=== PATIENT | female | born 1950 | race African-American/Black ===

== ENCOUNTER 2018-12-21 09:13 | Outpatient (CLI) | payer MEDICARE ==
--- NOTE | 2018-12-21 10:30 | BD ---
DEXA BONE DENSITY EXAM: COMPARISON: None. HISTORY: A 68-year-old postmenopausal female for screening. FINDINGS: Lumbar Spine: BMD (g/cm2) L1 1.270 T-Score: 2.5 L2 1.392 T-Score: 3.3 L3 1.350 T-Score: 2.4 L4 1.318 T-Score: 2.3 L1-L4 1.333 T-Score: 2.6 Femoral Neck: 0.894 T-Score: 0.4 Total Femur: 1.032 T-Score: 0.7 Impression: Normal bone mineral density. POS: TPC
== END 2018-12-21 09:14 | disposition home or self-care (01) ==
LOC: BICMAMMO 09:13
PROVIDERS: ATTEND Family Medicine
DX: Z78.0 Asymptomatic menopausal state (principal)
CPT/HCPCS: 77080

== ENCOUNTER 2019-01-18 12:38 | Outpatient (CLI) | payer MEDICARE ==
--- NOTE | 2019-01-18 13:44 | MMO ---
Bilateral MAMMO Bilat Diag DDI+JANE. CLINICAL HISTORY: Patient is 68 years old and is seen for diagnostic exam,lump or thickening in the left breast and pain in both breasts. The patient has the following family history of breast cancer: 2 maternal aunts; niece and daughter. The patient has no personal history of cancer. VIEWS: The views performed were: bilateral craniocaudal with tomosynthesis; bilateral mediolateral oblique with tomosynthesis; and bilateral mediolateral. FILMS COMPARED: The present examination has been compared to prior imaging studies performed at [facility] on 07/19/2010 and 05/18/2015, and at [facility] on 01/18/2019. MAMMOGRAM FINDINGS: There are scattered fibroglandular densities. There are no suspicious masses, suspicious calcifications, or new areas of architectural distortion. There are no mammographic or sonographic abnormalities to explain the patient's breast pain. The patient is referred back to her clinician. Negative imaging findings should not preclude biopsy if clinical findings are suspicious. IMPRESSION: THERE IS NO MAMMOGRAPHIC EVIDENCE OF MALIGNANCY. THE RESULTS OF THIS EXAM WERE SENT TO THE PATIENT. ACR BI-RADS Category 1 - Negative MAMMOGRAPHY NOTE: 1. A negative mammogram report should not delay a biopsy if a dominant of clinically suspicious mass is present. 2. Approximately 10% to 15% of breast cancers are not detected by mammography. 3. Adenosis and dense breasts may obscure an underlying neoplasm.
--- NOTE | 2019-01-18 14:32 | ULT ---
LIMITED LEFT BREAST ULTRASOUND: DATE: 01/18/2019. PROVIDED CLINICAL HISTORY: Focal breast pain. FINDINGS: Limited sonographic interrogation of the right breast was performed in the region of clinical concern . The sonographic appearance of the breast parenchyma in this region is normal. IMPRESSION: BIRADS category 1 - negative. Negative imaging findings should not preclude further evaluation of a clinically suspicious area. The patient is referred back to her clinician. POS: OFF
--- NOTE | 2019-01-18 14:47 | ULT ---
LIMITED LEFT BREAST ULTRASOUND: DATE: 01/18/2019. PROVIDED CLINICAL HISTORY: Focal left breast pain. FINDINGS: Limited sonographic interrogation was performed of the left breast in the region of clinical concern. The sonographic appearance of the breast parenchyma in this region is normal. IMPRESSION: BIRADS category 1 - negative. Negative findings should not preclude further evaluation of a clinical ly suspicious area. The patient is referred back to her clinician. POS: OFF
== END 2019-01-18 12:39 | disposition home or self-care (01) ==
LOC: BICMAMMO 12:38
PROVIDERS: ATTEND Family Medicine
DX: N64.4 Mastodynia (principal); Z80.3 Family history of malignant neoplasm of breast
CPT/HCPCS: 76642 ×2; 77066; G0279

== ENCOUNTER 2019-05-02 09:04 | Outpatient (CLI) | payer MEDICARE ==
--- NOTE | 2019-05-02 11:59 | MRI ---
MRI cervical spine noncontrast: DATE: 05/02/2019 HISTORY: 69-year-old female with cervicalgia and right cervical radiculopathy. COMPARISON: None FINDINGS: Vertebral body heights are maintained. Alignment is normal. Loss of lordosis may or may not represent muscle spasm. Mild to moderate facet DJD bilaterally at several levels. The greatest is at C7-T1, where there is bilateral bilateral moderate to severe facet DJD. Disc space narrowing is moderate at C3-4, C4-5, and C5-6. Mild at C6-7. Spinal canal is diffusely small in caliber on a congenital basis due to developmentally short pedicles. This is exacerbated by broad based disc-osteophytic bar complexes protruding into the anterior aspect of the spinal canal, and indenting the ventral surface of the spinal cord, at C3-4, C4-5, C5-6; and to a lesser degree at C6-7, where there is no co rd indentation. Bilateral uncinate process osteophytes encroach upon the neural foramina at multiple levels. C1-2: No high-grade central stenosis. C2-3: No high-grade central stenosis. No neural foraminal stenosis. C3-4: Somewhat severe central stenosis. The disc-osteophytic bar complex is asymmetrically larger on the right side than left side of the spinal canal. Severe right neural foraminal stenosis. Minimal or mild left neural foraminal stenosis. C4-5: Severe central spinal canal stenosis. Very severe right neural foraminal stenosis. Moderate to severe left neural foraminal stenosis. C5-6: Severe central spinal canal stenosis. In addition to the broad-based disc-osteophytic bar compl ex, there is a superimposed more focal left paracentral disc-osteophyte complex. Very severe right neural foraminal stenosis. Severe left neural foraminal stenosis. C6-7: Moderate to severe central spinal canal stenosis. Severe right neural foraminal stenosis. Moder ate to severe left neural foraminal stenosis. C7-T1: No high-grade central stenosis. Moderate to severe bilateral neural foraminal stenosis. IMPRESSION: 1. Cervical spondylosis with multilevel degenerative disc disease and C6-7 high-grade facet osteoarth rosis, exacerbating a developmentally small caliber spinal canal. 2. Multilevel severe central spinal canal stenosis with chronic cord impingement, and multilevel donna re bilateral neural foraminal stenosis.
== END 2019-05-02 09:05 | disposition home or self-care (01) ==
LOC: BICMRI 09:04
PROVIDERS: ATTEND Nurse Practitioner Acute Care
DX: M54.2 Cervicalgia (principal); M50.323 Other cervical disc degeneration at C6-C7 level; M47.812 Spondylosis without myelopathy or radiculopathy, cervical region; M48.02 Spinal stenosis, cervical region
CPT/HCPCS: 72141

== ENCOUNTER 2019-10-13 11:43 | Observation (INO) | payer MEDICARE ==
[2019-10-13] MEDS ORDERED: Nitroglycerin 0.4 MG TAB (25 Tab Bottle) PO PRN (14:51)
[2019-10-13 15:26] LABS: Troponin I Less than 0.010 ng/mL (< 0.028)
--- NOTE | 2019-10-13 15:42 | HP ---
PRIMARY CARE PROVIDER: Dr. Liyah Sevilla. HISTORY OF PRESENT ILLNESS: The patient referred to the Hospitalist Service by [facility] after transfer from [place]. The patient had an episode of about 1 minute of sharp chest pain about 3 days ago, then this morning, she had less than 5 minutes of heaviness associated with shortness of breath and a sweat. No radiation. No nausea. PAST MEDICAL HISTORY: Pertinent for hypertension, elevated cholesterol, hypothyroidism, trigeminal neuralgia, osteoarthritis. CURRENT MEDICATIONS: 1. Aspirin 81 mg a day. 2. Levothyroxine 88 mcg a day. 3. Gabapentin 600 mg three times a day. 4. Metoprolol 12.5 mg p.o. b.i.d. 5. Dilantin 100 mg twice a day. 6. Atorvastatin 30 mg a day. 7. Biotin 10,000 mcg one tablet a day. 8. Osteo Bi-Flex 250/200 once a day. ALLERGIES: IODINATED CONTRAST. LISINOPRIL CAUSES A SEVERE COUGH. MORPHINE CAUSES SHORTNESS OF BREATH. PAST SURGICAL HISTORY: L-spine surgery x2, cholecystectomy, hysterectomy, bilateral arthroscopic knee surgery. FAMILY HISTORY: Sister and father with coronary artery disease. Her sister is . Four brothers and her father had either throat cancer or lung cancer. She has a sister with breast cancer. She is , at bedside. Full code status. is surrogate decision maker. She is a nonsmoker. Non alcohol user. REVIEW OF SYSTEMS: GENERAL: She has had a little dizziness with present illness, but no syncope. No headache. No fever. EYES: She wears glasses. No double vision, blurred vision, or flashing lights. EAR, NOSE, AND THROAT: No ear pain or drainage. No nasal bleeding. No trouble swallowing. CARDIAC: See present illness. No orthopnea or paroxysmal nocturnal dyspnea. RESPIRATION: She has stress-induced asthma, which she uses an inhaler. She has no current wheezing or cough. GASTROINTESTINAL: No nausea, vomiting, abdominal pain, diarrhea, constipation, or melena. GENITOURINARY: No hematuria or dysuria. MUSCULOSKELETAL: She has occasional swelling in her feet. She has arthritic pain, most pronounced in her knees and her ankles. No particular joint swelling. NEUROLOGIC: No strokes, seizures, or focal weakness. PSYCHIATRIC: No anxiety or depression. SKIN: No bruising, bleeding, or rash. HEME/LYMPH: No tender or swollen lymph nodes in axilla, inguinal, or cervical area. PHYSICAL EXAMINATION: GENERAL: The patient is alert, cooperative, pleasant, in no acute distress. She has no pain at the present time except in her knees. Certainly, no chest pain. VITAL SIGNS: Blood pressure 139/95, pulse 72, respirations 18, temperature 98, O2 saturation 97 to 98 on room air. HEAD, EYES, EARS, NOSE, AND THROAT: Revealed pupils are equal, round, and reactive to light. Extraocular movements are intact. Sclerae are white. Tympanic membranes are clear. Nose is clear. Oral mucous membranes are wet. Dental hygiene is good. NECK: Supple without jugular venous distention, adenopathy, or thyromegaly. CHEST: Clear to auscultation and percussion. HEART: Had a regular rate and rhythm. First and second heart sounds were audible. She had a 3/6 harsh systolic crescendo decrescendo murmur. ABDOMEN: Soft. Bowel sounds are normal. There is no hepatosplenomegaly. No mass. No rebound. No bruits. EXTREMITIES: Reveal no cyanosis or clubbing. She does have 1+ ankle edema. PULSES: Carotid, radial, femoral, and dorsalis pedis pulses intact. SKIN: Warm and dry. HEME/LYMPH: No tender or swollen lymph nodes in the axilla, inguinal, or cervical area. NEUROLOGIC: Cranial nerves 2 through 12 are intact. Moves all extremities. Sensation intact. DIAGNOSTIC STUDIES: EKG, regular sinus rhythm with nonspecific ST-T abnormality, reviewed by me. Studies done in [place], chest x-ray personally reviewed, no cardiomegaly, CHF, or infiltrate. It is an underpenetrated film. LABORATORY DATA: CBC; hemoglobin 11.7 with microcytic micro-chromic indices, white count 6.1, platelet count 281,000. D-dimer was elevated at 0.91. Comprehensive metabolic profile normal except for blood sugar of 124 and alkaline phosphatase of 111. Initial troponin less than 0.01. ADMITTING DIAGNOSES: 1. Chest pain. 2. Aortic stenosis. 3. Hypertension. 4. Dyslipidemia. DISCUSSION: 1. The patient has elevated D-dimer. However, she has no calf tenderness. She has no tachycardia. She has no shortness of breath, except with her chest pain. I have a low index of suspicion for pulmonary embolus, in addition she is allergic to iodinated contrast, the patient does have positive family history for coronary artery disease, hypertension, elevated cholesterol, and abnormal electrocardiogram, my index of suspicion is high for coronary artery disease. Serial troponins will be done. Aspirin will be given, nitrates will be given p.r.n. Stress test will be ordered. 2. Hypertension and elevated cholesterol. Home medicines will be continued except the beta-jose alberto will be held for the stress test. Job ID: [id number]
[2019-10-13 15:51] VITALS: BMI 29.9
[2019-10-13] MEDS: Metoprolol Tartrate 25 MG TAB PO SCH (17:07)
[2019-10-13 18:32] LABS: Troponin I Less than 0.010 ng/mL (< 0.028)
[2019-10-13] MEDS: Gabapentin 300 MG CAP PO SCH (20:34)
[2019-10-14] MEDS ORDERED: NIFEdipine XL 30 MG TAB PO SCH (04:45)
[2019-10-14] MEDS ORDERED: Levothyroxine Sodium 88 MCG TAB PO SCH (06:00)
[2019-10-14] MEDS ORDERED: GLUCOSAMINE PO SCH (09:00)
[2019-10-14] MEDS ORDERED: D3 PO SCH (09:00)
[2019-10-14] MEDS ORDERED: BOSWELLIA SERRA PO SCH (09:00)
[2019-10-14] MEDS ORDERED: Aspirin 81 mg Enteric Coated Tablet PO SCH (09:00)
[2019-10-14] MEDS ORDERED: (Biotin [Biotin] 10,000 MCG) PO SCH (09:00)
[2019-10-14] MEDS ORDERED: Enoxaparin Sodium 40 MG/0.4 ML SYRINGE SC SCH (09:00)
[2019-10-14] MEDS ORDERED: Aspirin 325 mg Enteric Coated Tablet PO SCH (09:00)
[2019-10-14] MEDS ORDERED: Atorvastatin Calcium 40 MG TAB PO SCH (09:00)
[2019-10-14] MEDS: Metoprolol Tartrate 25 MG TAB PO SCH (11:00)
[2019-10-14] MEDS: Gabapentin 300 MG CAP PO SCH ×2 (11:02→16:04)
--- NOTE | 2019-10-14 13:04 | NM ---
MYOCARDIAL PERFUSION SCAN WITH SPECT IMAGING: HISTORY: Chest pain. TECHNIQUE/FINDINGS: Examination is performed using 32.5 mCi 99m-technetium sestamibi on the stress and 10.5 on the restin g images. This shows a fairly normal distribution of radiopharmaceutical. No signs of ischemia or sca r. WALL MOTION: There is symmetric contractility to the ventricle. LEFT VENTRICULAR EJECTION FRACTION: The calculated left ventricular ejection fraction is 75%. IMPRESSION: Unremarkable myocardial perfusion scan. POS: [facility]
--- NOTE | 2019-10-14 14:50 | DIS ---
DATE OF ADMISSION: 10/13/2019 DATE OF DISCHARGE: 10/14/2019 PRIMARY CARE PROVIDER: Dr. Liyah Sevilla. DISPOSITION: Discharged home. FINAL DIAGNOSES: Noncardiac chest pain, hypertension, dyslipidemia, hypothyroidism. DISCHARGE MEDICINES: Same as home medicines; 1. Lipitor 60 mg a day. 2. Dilantin 100 mg twice a day. 3. Metoprolol 12.5 mg b.i.d. 4. Levothyroxine 88 mcg a day. 5. Gabapentin 600 mg three times a day. 6. Aspirin 81 mg a day. ALLERGIES: ALLERGIC TO IODINE, MORPHINE, LISINOPRIL. CODE STATUS: Full. PENDING AT TIME OF DISCHARGE: Nothing. HOSPITAL COURSE: No consultations. No procedures. The patient admitted with chest pain, sharp, atypical. She had some shortness of breath with pain. EKG was regular sinus rhythm with nonspecific ST-T abnormality. Cardiac enzymes were normal. Other lab done in [place], CBC with white count 6.1, platelet count 281,000, hemoglobin 11.7. Common metabolic profile normal except for a glucose of 124, alkaline phosphatase of 111. Troponins were normal x3. Nuclear medicine cardiac stress test is normal. Currently, her vital signs are normal. Cardiorespiratory exam is normal. Pulse of 67 and 76. She is being discharged home to follow up with her PCP in 3 days. Job ID: [id number]
[2019-10-14 16:13] VITALS: BP 157/81; TEMP 98.1
== END 2019-10-14 16:25 | disposition home or self-care (01) ==
LOC: ERS 11:43 → 2SW 14:43
PROVIDERS: ADMIT Internal Medicine; ATTEND Internal Medicine
DX: R07.89 Other chest pain (principal); I10 Essential (primary) hypertension; E78.5 Hyperlipidemia, unspecified; E03.9 Hypothyroidism, unspecified; R79.1 Abnormal coagulation profile; E78.00 Pure hypercholesterolemia, unspecified; M19.90 Unspecified osteoarthritis, unspecified site; I35.0 Nonrheumatic aortic (valve) stenosis; F41.9 Anxiety disorder, unspecified; Z79.82 Long term (current) use of aspirin; Z79.899 Other long term (current) drug therapy; Z88.5 Allergy status to narcotic agent; Z88.8 Allergy status to other drugs, medicaments and biological substances; Z91.041 Radiographic dye allergy status
CPT/HCPCS: 78452; 84484; 93005; 93017; 93306; 94760; 99285; A9500; 36415; 93010; 96360; 96361; 96372; G0378; J1650

== ENCOUNTER 2020-01-24 14:57 | Emergency (ER) | payer MEDICARE, OTHER ==
[2020-01-25 17:27] LABS: SARS-CoV-2 MS2 Positive; SARS-CoV-2 N Gene Negative; SARS-CoV-2 S Gene Negative; SARS-CoV-2 orf1ab Negative
== END 2020-01-24 15:55 | disposition home or self-care (01) ==
LOC: ERS 14:57
DX: Z20.828 Contact with and (suspected) exposure to other viral communicable diseases (principal)
CPT/HCPCS: 99283; U0003; 87635

== ENCOUNTER 2020-02-04 08:06 | Outpatient (CLI) | payer MEDICARE ==
--- NOTE | 2020-02-04 09:11 | CT ---
CT ABDOMEN WITH CONTRAST CT PELVIS WITH CONTRAST: DATE: 02/04/2020 HISTORY: 69-year-old female with right upper quadrant abdominal pain and epigastric pain COMPARISON: 05/31/[address] TECHNIQUE: IV injection of iodinated contrast media: Isovue 370. Oral contrast media:Redicat FINDINGS: Again noted is the approximately 1.8 x 1.6 x 2.4 cm mass at the posterior aspect of the right renal l ower pole parenchyma. During the nephrographic phase, this as a density of approximately 30 Hounsfield units. It contains internal septations, and slight mural thickening. It has not changed in size. Ultrasound was recommended on the previous CT report, but no ultrasound was performed. No other abnormality involving the kidneys, abdominal aorta, adrenals, pancreas, liver, and urinary blad brittney. There is a moderately large volume of stool in the right hemicolon, from the cecum through the hepatic flexure. No evidence of colonic diverticulitis. No small bowel dilation, ascites, or pneumope ritoneum. No consolidation or pleural effusion at lung bases. Clips in gallbladder fossa. Appendix not identified. Uterus absent. Lumbar spondylosis with postsurgical changes. IMPRESSION: 1) no acute findings. 2) right renal lower pole mass. Although this has not grown since 05/31/2018, it is not a simple cyst. Recommend further evaluation with multiphase CT abdomen with and without contrast, renal mass protocol. 3) status post cholecystectomy, hysterectomy, and probably appendectomy 4) possible constipation, with moderately large volume of stool in right hemicolon.
[2020-02-04] MEDS ORDERED: Iopamidol 370 76% 100 ML VIAL ONE (09:13)
== END 2020-02-04 08:07 | disposition home or self-care (01) ==
LOC: CT 08:06
PROVIDERS: ATTEND Internal Medicine Gastroenterology
DX: R63.4 Abnormal weight loss (principal); R10.9 Unspecified abdominal pain
CPT/HCPCS: 74177; 82565; Q9967

== ENCOUNTER 2020-09-02 11:44 | Outpatient (CLI) | payer MEDICARE ==
--- NOTE | 2020-09-02 13:02 | ULT ---
ULTRASOUND RETROPERITONEUM COMPLETE: (RENAL) DATE: 09/02/2020 HISTORY: 70-year-old female with right renal mass COMPARISON: CT abdomen noncontrast of 05/31/2018, and CT abdomen with contrast of 02/04/2020 FINDINGS: At the lower pole of the right kidney, there is an approximately 2 x 1.8 x 2.3 cm mass. It has very h ypoechoic components and irregularly-shaped patchy intermediate echogenicity component. On the venous phase/nephrographic phase CT of 02/04/2020, it had a postcontrast density of 30 Hounsfield units . On the noncontrast scan of 05/31/2018, its density was approximately 26 Hounsfield units. Therefore, it appears to be an enhancing mass. Right kidney measures 10.5 x 4 x 4.5 cm. Left kidney measures 10.5 x 5 x 5 cm. No hydronephrosis. No gross abnormality of urinary bladder identified. IMPRESSION: Slightly greater than 2 cm right renal lower pole mass with complex, heterogeneous echogenicity. This could either be a very slowly growing neoplasm such as renal cell carcinoma, or a hemorrhagic cyst. As recommended on the impression of the report of the 02/04/2020 CT, further evaluation is recomm ended with multiphase CT of abdomen with and without contrast (renal mass protocol)
== END 2020-09-02 11:45 | disposition home or self-care (01) ==
LOC: BICULT 11:44
PROVIDERS: ATTEND Urology
DX: D41.01 Neoplasm of uncertain behavior of right kidney (principal); N28.89 Other specified disorders of kidney and ureter
CPT/HCPCS: 76770

== ENCOUNTER 2021-09-16 12:48 | Outpatient (CLI) | payer MEDICARE ==
[2021-09-16 13:14] LABS: Estimated GFR-MDRD - POC Greater than 90
== END 2021-09-16 12:49 | disposition home or self-care (01) ==
LOC: CT 12:48
PROVIDERS: ATTEND Urology
DX: D41.01 Neoplasm of uncertain behavior of right kidney (principal)
CPT/HCPCS: 74160; 74170; 82565

== ENCOUNTER 2023-01-02 14:11 | Outpatient (CLI) | payer OTHER | END 2023-01-02 14:12 | disposition home or self-care (01) | LOC: ULT 14:11 | PROVIDERS: ATTEND Family Medicine | DX: D41.01 Neoplasm of uncertain behavior of right kidney (principal); N28.89 Other specified disorders of kidney and ureter; N28.1 Cyst of kidney, acquired | CPT/HCPCS: 76770 ==

== ENCOUNTER 2023-09-18 12:16 | Outpatient (CLI) | payer MEDICARE ==
[2023-09-18] MEDS ORDERED: Iopamidol 370 76% 100 ML VIAL ONE (13:40)
== END 2023-09-18 12:17 | disposition home or self-care (01) ==
LOC: CT 12:16
PROVIDERS: ATTEND Urology
DX: N28.1 Cyst of kidney, acquired (principal); Z88.8 Allergy status to other drugs, medicaments and biological substances; N28.89 Other specified disorders of kidney and ureter
CPT/HCPCS: 74170; 82565

== ENCOUNTER 2024-02-19 14:10 | Outpatient (CLI) | payer MEDICARE | END 2024-02-19 14:11 | disposition home or self-care (01) | LOC: RAD 14:10 | PROVIDERS: ATTEND Internal Medicine Critical Care Medicine | DX: R06.00 Dyspnea, unspecified (principal) | CPT/HCPCS: 71046 ==

== ENCOUNTER 2024-04-26 09:58 | Outpatient (CLI) | payer MEDICARE | END 2024-04-26 09:59 | disposition home or self-care (01) | LOC: CT 09:58 | PROVIDERS: ATTEND Nurse Practitioner Family | DX: S09.90XD Unspecified injury of head, subsequent encounter (principal) | CPT/HCPCS: 70450 ==

== ENCOUNTER 2024-05-21 10:34 | Outpatient (CLI) | payer MEDICARE | END 2024-05-21 10:35 | disposition home or self-care (01) | LOC: RAD 10:34 | PROVIDERS: ATTEND Internal Medicine Critical Care Medicine | DX: R06.00 Dyspnea, unspecified (principal); I51.7 Cardiomegaly | CPT/HCPCS: 71046 ==